=== PATIENT | male | born 1935 | race Caucasian/White ===

== ENCOUNTER 2017-03-09 16:55 | Emergency (ER) | payer MEDICARE ==
--- NOTE | 2017-03-09 18:10 | ERPHSYRPT ---
- History of Present Illness Source: patient Exam Limitations: clinical condition Patient Subjective Stated Complaint: altered loc Triage Nursing Assessment: per ems--altered loc. on arrival, pt knows name and birthday. states he is here for a picture of his head. confused to place and time. position is the comfort on lt side. shunt visible to rt head. incont of stool. foul smelling wound wrapped from alf to lt lower extrem Hx Tetanus, Diphtheria Vaccination/Date Given: Yes Hx Influenza Vaccination/Date Given: No Hx Pneumococcal Vaccination/Date Given: No Immunizations Up to Date: Yes <YUNG CRUZ - Last Filed: 03/09/17 19:18> <DINORAH PRICE - Last Filed: 03/09/17 21:14> - History of Present Illness Time Seen by Provider: 03/09/17 18:04 Physician History: Pt. is a OK pt. with decrease LOC who was brought in for evaluation. Pt. with SINGLE END SEWER shunt and denies any recent trauma or falls. Denies any fever, chills, cough , chest or abdominal pain. (YUNG CRUZ) Allergies/Adverse Reactions: No Known Drug Allergies Allergy (Unverified 03/09/17 17:07) Home Medications: Donepezil HCl [Aricept] 10 mg PO HS 02/28/15 [History] Furosemide [Lasix] 20 mg PO DAILY 02/28/15 [History] Potassium Chloride 10 meq PO DAILY 02/28/15 [History] Cyanocobalamin 500 Mcg [Vitamin B-12 500 MCG] 500 mcg PO DAILY 03/09/17 [ History] Polyethylene Glycol 1450 17 gm MC DAILY 03/09/17 [History] - Review of Systems Constitutional: No Fever, No Chills Eyes: No Symptoms Ears, Nose, & Throat: No Symptoms Respiratory: No Cough, No Dyspnea Cardiac: No Chest Pain, No Edema, No Syncope Abdominal/Gastrointestinal: No Abdominal Pain, No Nausea, No Vomiting, No Diarrhea Genitourinary Symptoms: No Dysuria Musculoskeletal: No Back Pain, No Neck Pain Skin: No Rash Neurological: Other (decrease MS), No Dizziness, No Focal Weakness, No Headache , No Sensory Changes, No Speech Changes Psychological: No Symptoms Endocrine: No Symptoms All Other Systems: Reviewed and Negative <YUNG CRUZ - Last Filed: 03/09/17 19:18> - Past Medical History Pertinent Past Medical History: Yes Neurological History: Dementia, Other Other Medical History: HYDROCEPHALUS, constipation, localized edema, electrolyte imbalance - Past Surgical History Past Surgical History: Yes Neuro Surgical History: Brain Shunt - Social History Smoking Status: Former smoker Exposure to second hand smoke: No Drug Use: none Patient Lives Alone: No <YUNG CRUZ - Last Filed: 03/09/17 19:18> - Ana Coma Scale Best Eye Response (Ana): (4) open spontaneously Best Verbal Response ([place]): (4) confused conversation Best Motor Response (Ana): (6) obeys commands Ana Total: 14 - Physical Exam General Appearance: no apparent distress, alert Eye Exam: bilateral eye: PERRL, EOMI Ears, Nose, Throat Exam: normal ENT inspection, moist mucous membranes Neck Exam: normal inspection, non-tender, supple Respiratory: normal breath sounds, lungs clear, airway intact, No respiratory distress Cardiovascular: regular rate/rhythm, No edema Gastrointestinal: soft, No tenderness, No distention Rectal Exam: other (buttock decubitus ulcer noted) Back Exam: normal inspection Extremity Exam: other (L LE with wound to the distal tib/fib area, wound bandaged currently ), No pedal edema Peripheral Pulses: dorsalis-pedis (R): 2+, dorsalis-pedis (L): 2+ Mental Status: alert, cooperative, disoriented to place, 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 Exam: tongue midline Coordination/Gait: normal finger to nose, normal gait Skin Exam: normal color, warm, dry, No rash SpO2: 96 Oxygen Delivery: Room Air <YUNG CRUZ - Last Filed: 03/09/17 19:18> - Course Nursing assessment & vital signs reviewed: Yes <YUNG CRUZ - Last Filed: 03/09/17 19:18> - Course EKG Interpreted by Me: RATE (75), Sinus Rhythm, NORMAL AXIS, NORMAL INTERVALS, 1st degree AV Block - Radiology Exams Chest X-ray Interpretation: Interpreted by me, No Pneumonia <DINORAH PRICE - Last Filed: 03/09/17 21:14> Ordered Tests: Active Orders 24 hr Category Date Time Status Clean Catch Urine Specimen STAT Care 03/09/17 18:14 Inactive EKG-ER Only STAT Care 03/09/17 18:19 Active IV Insertion STAT Care 03/09/17 18:14 Active Wound Care STAT Care 03/09/17 19:46 Active cath [Cath for Specimen-Straight] STAT Care 03/09/17 19:29 Active CHEST 1 VIEW (PORTABLE) Stat Exams 03/09/17 18:19 Taken HEAD WITHOUT CONTRAST [CT] Stat Exams 03/09/17 18:17 Taken BMP Stat Lab 03/09/17 18:30 Completed CBC W DIFF Stat Lab 03/09/17 18:30 Completed TROPONIN Stat Lab 03/09/17 19:35 Completed UA Stat Lab 03/09/17 19:20 Completed Medication Summary Discontinued Medications Generic Name Dose Route Start Last Admin Trade Name Freq PRN Reason Stop Dose Admin Bacitracin 0.9 gm 03/09/17 20:13 03/09/17 20:36 Baciguent Packet TP 03/09/17 20:14 0.9 gm STAT ONE Administration Bacitracin Confirm 03/09/17 20:16 Baciguent Packet Administered 03/09/17 20:17 Dose 1 gm .ROUTE .STK-MED ONE Sodium Chloride 1,000 mls @ 999 mls/hr 03/09/17 19:35 03/09/17 19:44 Sodium Chloride 0.9% 1000 Ml IV 03/09/17 20:35 999 mls/hr .Q1H1M STA Administration Sodium Chloride Confirm 03/09/17 19:39 Sodium Chloride 0.9% 1000 Ml Administered 03/09/17 19:40 Dose 1,000 mls @ ud .ROUTE .STK-MED ONE Lab/Rad Data: Laboratory Result Diagrams 03/09/17 18:30 03/09/17 18:30 Laboratory Results 03/09/17 03/09/17 03/09/17 Range/Units 19:35 19:20 18:30 WBC (4.0-10.5) K/mm3 RBC (4.1-5.6) M/mm3 Hgb (12.5-18.0) gm/dl Hct (42-50) % MCV (78-100) fl MCH (26-32) pg MCHC (32-36) g/dl RDW (11.5-14.0) % Plt Count (150-450) K/mm3 MPV (6-9.5) fl Gran % (36.0-66.0) % Lymphocytes % (24.0-44.0) % Monocytes % (0.0-12.0) % Eosinophils % (0.00-5.0) % Basophils % (0.0-0.4) % Basophils # (0-0.4) Sodium 139 (136-145) mEq/L Potassium 4.2 (3.5-5.1) mEq/L Chloride 103 (98-107) mEq/L Carbon Dioxide 29.4 (21-32) mEq/L Anion Gap 11.0 (5-15) MEQ/L BUN 21 H (9-20) mg/dL Creatinine 1.07 (0.55-1.30) mg/dl Estimated GFR > 60 ML/MIN Glucose 100 (70-110) MG/DL Calcium 9.1 (8.5-10.1) mg/dL Troponin I < 0.017 (0.000-0.056) ng/ml Ur Collection Type CLEAN CATCH Urine Color YELLOW (YELLOW) Urine Appearance CLEAR (CLEAR) Urine pH 5.0 (5-6) Ur Specific [place] 1.020 (1.005-1.025) Urine Protein NEGATIVE (Negative) Urine Glucose (UA) NEGATIVE (NEGATIVE) mg/dL Urine Ketones TRACE (NEGATIVE) Urine Nitrite NEGATIVE (NEGATIVE) Urine Bilirubin NEGATIVE (NEGATIVE) Urine Urobilinogen 0.2 (0-1) mg/dL Urine WBC (Auto) NEGATIVE (NEGATIVE) Urine RBC (Auto) NEGATIVE (0-5) Darrel/ul Specimen Received [id number] 03/09/17 Range/Units 18:30 WBC 8.3 (4.0-10.5) K/mm3 RBC 3.95 L (4.1-5.6) M/mm3 Hgb 11.4 L (12.5-18.0) gm/dl Hct 36.5 L (42-50) % MCV 92.4 (78-100) fl MCH 28.8 (26-32) pg MCHC 31.2 L (32-36) g/dl RDW 14.0 (11.5-14.0) % Plt Count 357 (150-450) K/mm3 MPV 9.1 (6-9.5) fl Gran % 70.4 H (36.0-66.0) % Lymphocytes % 15.3 L (24.0-44.0) % Monocytes % 9.2 (0.0-12.0) % Eosinophils % 4.7 (0.00-5.0) % Basophils % 0.4 (0.0-0.4) % Basophils # 0.03 (0-0.4) Sodium (136-145) mEq/L Potassium (3.5-5.1) mEq/L Chloride (98-107) mEq/L Carbon Dioxide (21-32) mEq/L Anion Gap (5-15) MEQ/L BUN (9-20) mg/dL Creatinine (0.55-1.30) mg/dl Estimated GFR ML/MIN Glucose (70-110) MG/DL Calcium (8.5-10.1) mg/dL Troponin I (0.000-0.056) ng/ml Ur Collection Type Urine Color (YELLOW) Urine Appearance (CLEAR) Urine pH (5-6) Ur Specific [place] (1.005-1.025) Urine Protein (Negative) Urine Glucose (UA) (NEGATIVE) mg/dL Urine Ketones (NEGATIVE) Urine Nitrite (NEGATIVE) Urine Bilirubin (NEGATIVE) Urine Urobilinogen (0-1) mg/dL Urine WBC (Auto) (NEGATIVE) Urine RBC (Auto) (0-5) Darrel/ul Specimen Received <YUNG CRUZ - Last Filed: 03/09/17 19:18> - Progress Discussed with : Allen (MAY SEND PT BACK TO [facility] - [id number]) <DINORAH PRICE - Last Filed: 03/09/17 21:14> - Progress Progress Note: 03/09/17 19:[address] PRICE 1939: PERRL, EOMI, PHARYNX PINK, mm SLIGHTLY DRY, LUNGS CLEAR, NO CARDIAC RUB, ABDOMINAL B.S. NORMAL, DECUBITUS ULCER ON RIGHT BUTTOCK ~ 2 CM DIAMETER, LARGE DECUBITUS ULCER(12 CM X 9.5 CM) OVER THE ANTERIOR ASPECT OF THE LEFT LOWER LEG, NO TREMORS, LEFT FINGERS WILL NOT EXTEND FULLY, ALERT AND KNOWS YEAR, V-P SHUNT BULB COMPRESSIBLE. (DINORAH PRICE) <YUNG CRUZ - Last Filed: 03/09/17 19:18> - Departure Time of Disposition: 21:14 Departure Disposition: Extended Care Facility Critical Care Time: No <DINORAH PRICE - Last Filed: 03/09/17 21:14> - Departure Clinical Impression: AMS, MILD DEHYDRATION, DECUBITUS ULCER LEFT LEG AND RIGHT BUTTOCK, DEMENTIA Condition: Fair Referrals: WHITLEY ENG MD [Primary Care Provider] - Instructions: Dehydration -- Adult Additional Instructions: FOLLOW UP WITH PRIVATE DOCTOR TOMORROW.
[2017-03-09 18:59] LABS: BASOPHIL % 0.4 % (0.0-0.4); Eosinophil % 4.7 % (0.00-5.0); Granulocytes % 70.4 % (36.0-66.0); Lymphocytes % 15.3 % (24.0-44.0); Mean Cell Volume 92.4 fl (78-100); Mean Corpuscular Hemoglobin 28.8 pg (26-32); Mean Platelet Volume 9.1 fl (6-9.5); Monocytes % 9.2 % (0.0-12.0); Platelet Count 357 K/mm3 (150-450); Red Blood Count 3.95 M/mm3 (4.1-5.6); White Blood Count 8.3 K/mm3 (4.0-10.5)
[2017-03-09 19:06] LABS: BLOOD UREA NITROGEN 21 mg/dL (9-20); CHLORIDE 103 mEq/L (98-107); Carbon Dioxide 29.4 mEq/L (21-32); Glucose 100 MG/DL (70-110); Potassium 4.2 mEq/L (3.5-5.1); SODIUM 139 mEq/L (136-145)
[2017-03-09] MEDS ORDERED: Sodium Chloride 0.9% 1000 ML 1,000 ML IV STA (19:35)
[2017-03-09] MEDS ORDERED: Sodium Chloride 0.9% 1000 ML 1,000 ML ONE (19:39)
[2017-03-09 19:41] LABS: Collection Type CLEAN CATCH
[2017-03-09 19:42] LABS: COMPLETE URINE MICROSCOPIC? NO
[2017-03-09] MEDS ORDERED: BACIGUENT PACKET TP ONE (20:13)
[2017-03-09] MEDS ORDERED: BACIGUENT PACKET ONE (20:16)
[2017-03-09 20:42] VITALS: PULSE 83
[2017-03-09 21:01] VITALS: BP 120/92; O2SAT 97
--- NOTE | 2017-03-10 08:39 | XRAY ---
Indication: Acute mental status change. Loss of consciousness. Multiple contiguous axial images obtained through the head without contrast. Comparison: February 28, 2015. Stable age-appropriate global atrophy, moderate periventricular degenerative micro-ischemia, remote right caudate lacunar infarct, communicating type hydrocephalus, and right ventricle shunt catheter. Again no acute intracranial hemorrhage, abnormal extra-axial fluid collection, or mass effect. Bony calvarium intact. Visualized paranasal sinuses and mastoid air cells are clear. Impression: 1. Again no new/acute intracranial abnormalities. 2. Stable atrophy, degenerative micro-ischemia, remote right caudate lacunar infarct, hydrocephalus, and right ventricle shunt catheter. CT DI 70.94
--- NOTE | 2017-03-10 09:08 | XRAY ---
Indication: Cough. Comparison: February 28, 2015. Portable apical lordotic chest less inflated today with stable right ventricular shunt catheter. No focal infiltrate, consolidation, or large effusion. Heart is not enlarged. Bony thorax intact again with osteopenia and degenerative changes. Impression: Nonacute underinflated chest again with chronic features.
== END 2017-03-09 21:56 | disposition home or self-care (01) ==
LOC: ED 16:55
DX: R41.82 Altered mental status, unspecified (principal); E86.0 Dehydration; L89.899 Pressure ulcer of other site, unspecified stage; L89.319 Pressure ulcer of right buttock, unspecified stage; F03.90 Unspecified dementia, unspecified severity, without behavioral disturbance, psychotic disturbance, mood disturbance, and anxiety; R41.0 Disorientation, unspecified; R15.9 Full incontinence of feces
CPT/HCPCS: 99284; 36000; 96360; 93005; 81002; 36415; 85025; 80048; 84484; 71010; 70450; P9612; A9270-GY